=== PATIENT | female | born 1950 | race Caucasian/White ===

== ENCOUNTER 2017-03-25 20:01 | Emergency (ER) | payer MEDICARE, SELFPAY ==
[~2017-03-25] VITALS: Ht 167.6 cm; Wt 142.6 kg
[2017-03-25 20:10] VITALS: BP 146/87
== END 2017-03-25 20:51 | disposition home or self-care (01) ==
LOC: ED 20:45
DX: R13.13 Dysphagia, pharyngeal phase (principal); J31.2 Chronic pharyngitis; I10 Essential (primary) hypertension; E11.9 Type 2 diabetes mellitus without complications; E66.9 Obesity, unspecified
CPT/HCPCS: 99283

== ENCOUNTER 2018-03-22 09:47 | Inpatient (IN) | payer MEDICARE ==
[~2018-03-22] VITALS: Ht 167.6 cm; Wt 117.4 kg
[2018-03-22] VITALS (8 sets, daily range): BP systolic 114–195; BP diastolic 62–132
[2018-03-22] MEDS ORDERED: METOPROLOL TARTRATE 50 MG TABLET ONE (10:47)
[2018-03-22] MEDS ORDERED: METOPROLOL TARTRATE 50 MG TABLET PO ONE (11:00)
[2018-03-22 11:35] LABS: BASOPHILS # (AUTO) 0.05 x10^3/uL (0-0.1); BASOPHILS % (AUTO) 1 % (0-1); EOSINOPHILS % (AUTO) 3 % (1-7); LYMPHOCYTES # (AUTO) 1.04 x10^3/uL (1-3.4); LYMPHOCYTES % (AUTO) 17 % (22-44); MD NO; MEAN CORPUSCULAR HGB CONC 33.6 g/dL (32.4-35.8); MEAN CORPUSCULAR VOLUME 89.3 fL (80-100); MEAN PLATELET VOLUME 9.5 fL (7.4-10.4); MONOCYTES # (AUTO) 0.31 x10^3/uL (0.2-0.8); MONOCYTES % (AUTO) 5 % (2-9); NEUTROPHILS # (AUTO) 4.72 x10^3/uL (1.8-6.8); NEUTROPHILS % (AUTO) 75 % (42-75); PLATELET COUNT 188 x10^3/uL (130-400); RED BLOOD COUNT 5.04 x10^6/uL (3.82-5.3); RED CELL DISTRIBUTION WIDTH 14.1 % (9.6-15.2)
[2018-03-22 11:46] LABS: CHLORIDE 108 mmol/L (98-107)
[2018-03-22 11:47] LABS: ALBUMIN 3.7 g/dL (3.4-5.0); ANION GAP 8 mmol/L (5-15); CALCIUM 8.7 mg/dL (8.5-10.1)
[2018-03-22] MEDS ORDERED: LISINOPRIL 20 MG TABLET ONE (11:47)
[2018-03-22] MEDS ORDERED: NITROGLYCERIN OINT 2%, 1GM TP ONE ×2 (11:48→12:30)
[2018-03-22 11:50] LABS: TROPONIN I < 0.015 ng/mL (0.000-0.045)
[2018-03-22] MEDS ORDERED: METF500T17 PO (12:16)
[2018-03-22] MEDS ORDERED: LISI5TAB7 PO (12:16)
[2018-03-22] MEDS ORDERED: HYDROCHLOROTHIAZIDE (12:16)
[2018-03-22] MEDS ORDERED: LISINOPRIL 20 MG TABLET PO ONE (12:30)
[2018-03-22] MEDS ORDERED: BISACODYL 10 MG SUPP PR PRN (14:00)
[2018-03-22] MEDS ORDERED: DEXTROSE 50%, 50ML SYRINGE IVPush PRN (14:00)
[2018-03-22] MEDS ORDERED: DOCUSATE 100 MG CAPSULE PO PRN (14:00)
[2018-03-22] MEDS ORDERED: morphine SULFATE 10 MG/ML, 1ML IVPush PRN (14:00)
[2018-03-22] MEDS ORDERED: DILTIAZEM 5 MG/ML, 5ML IVPush ONE (14:00)
[2018-03-22] MEDS ORDERED: GLUCAGON 1 MG IM PRN (14:00)
[2018-03-22] MEDS ORDERED: DEXTROSE 4 GM TAB.CHEW PO PRN (14:00)
[2018-03-22] MEDS ORDERED: ASPIRIN 325 MG TABLET PO ONE (14:00)
[2018-03-22] MEDS ORDERED: POLYETHYLENE GLYCOL 17 GM PACKET PO PRN (14:00)
[2018-03-22] MEDS ORDERED: NITROGLYCERIN 0.4 MG BOTTLE (25 TABS) SL PRN (14:00)
[2018-03-22] MEDS ORDERED: SODIUM CHLORIDE FLUSH 10ML SYR IVF ONE (14:00)
[2018-03-22] MEDS ORDERED: ACETAMINOPHEN 325 MG TABLET PO PRN (14:00)
[2018-03-22] MEDS ORDERED: ONDANSETRON ODT 4 MG PO PRN (14:00)
[2018-03-22] MEDS ORDERED: ASPIRIN 325 MG TABLET ONE (14:34)
[2018-03-22] MEDS ORDERED: hydrALAzine 20 MG/ML, 1ML ONE (14:34)
[2018-03-22] MEDS: hydrALAzine 20 MG/ML, 1ML IVPush PRN ×2 (14:43→18:43)
[2018-03-22] MEDS ORDERED: ONDANSETRON 2MG/ML, 2ML ONE (14:45)
[2018-03-22] MEDS: ONDANSETRON 2MG/ML, 2ML IVPush PRN ×2 (14:50→18:43)
[2018-03-22] MEDS ORDERED: LOVA10TA PO (14:56)
[2018-03-22] MEDS ORDERED: AMLO2.5T3 PO (14:56)
[2018-03-22 15:15] LABS: TROPONIN I < 0.015 ng/mL (0.000-0.045)
[2018-03-22 15:23] LABS: HEMOGLOBIN A1C 5.8 % (4.2-6.3)
[2018-03-22 15:27] LABS: THYROID STIMULATING HORMONE 5.17 mIU/L (0.358-3.740)
[2018-03-22] MEDS: INSULIN LISPRO 100 UNITS/ML, PEN SQ-INSULIN SCH ×2 (15:43→19:45)
[2018-03-22] MEDS ORDERED: MAGNESIUM SULFATE PMX 2GM/50ML 50 ML IV SCH (17:30)
[2018-03-22] MEDS ORDERED: MAGNESIUM SULFATE PMX 4GM/100M 100 ML IVPB ONE (18:00)
[2018-03-22] MEDS: HEPARIN 5,000 UNITS/ML, 1ML SQ SCH (19:39)
[2018-03-22] MEDS: SODIUM CHLORIDE FLUSH 10ML SYR IVF SCH (19:40)
[2018-03-22 20:35] LABS: TROPONIN I < 0.015 ng/mL (0.000-0.045)
[2018-03-23] VITALS (9 sets, daily range): BP systolic 113–172; BP diastolic 67–87
[2018-03-23] MEDS: HEPARIN 5,000 UNITS/ML, 1ML SQ SCH ×3 (04:41→20:48)
[2018-03-23 05:11] LABS: BASOPHILS # (AUTO) 0.09 x10^3/uL (0-0.1); BASOPHILS % (AUTO) 1 % (0-1); EOSINOPHILS # (AUTO) 0.13 x10^3/uL (0-0.4); EOSINOPHILS % (AUTO) 2 % (1-7); LYMPHOCYTES # (AUTO) 1.02 x10^3/uL (1-3.4); LYMPHOCYTES % (AUTO) 15 % (22-44); MD NO; MEAN CORPUSCULAR HEMOGLOBIN 30.3 pg (27.0-34.8); MEAN CORPUSCULAR HGB CONC 33.8 g/dL (32.4-35.8); MEAN CORPUSCULAR VOLUME 89.7 fL (80-100); MEAN PLATELET VOLUME 9.6 fL (7.4-10.4); MONOCYTES # (AUTO) 0.39 x10^3/uL (0.2-0.8); MONOCYTES % (AUTO) 6 % (2-9); NEUTROPHILS # (AUTO) 5.39 x10^3/uL (1.8-6.8); NEUTROPHILS % (AUTO) 77 % (42-75); PLATELET COUNT 188 x10^3/uL (130-400); RED BLOOD COUNT 4.93 x10^6/uL (3.82-5.3); RED CELL DISTRIBUTION WIDTH 14.6 % (9.6-15.2)
[2018-03-23 05:22] LABS: ALANINE AMINOTRANSFERASE 32 U/L (12-78); ALBUMIN 3.1 g/dL (3.4-5.0); ANION GAP 7 mmol/L (5-15); CALCIUM 8.6 mg/dL (8.5-10.1); CHLORIDE 107 mmol/L (98-107)
[2018-03-23 05:25] LABS: ALKALINE PHOSPHATASE 56 U/L (45-117); BILIRUBIN,TOTAL 0.9 mg/dL (0.2-1.0); CREATININE 1.22 mg/dL (0.55-1.02); TOTAL PROTEIN 6.3 g/dL (6.4-8.2)
[2018-03-23] MEDS: INSULIN LISPRO 100 UNITS/ML, PEN SQ-INSULIN SCH ×4 (07:00→20:49)
[2018-03-23] MEDS: ONDANSETRON 2MG/ML, 2ML IVPush PRN (08:29)
[2018-03-23] MEDS: SODIUM CHLORIDE FLUSH 10ML SYR IVF SCH ×2 (08:29→20:48)
[2018-03-23] MEDS ORDERED: REGADENOSON 0.4 MG/5 ML SYRINGE ONE (08:54)
[2018-03-23] MEDS: FUROSEMIDE 20 MG TABLET PO SCH (11:43)
[2018-03-23] MEDS: AMLODIPINE 2.5 MG TABLET PO SCH (12:44)
[2018-03-23] MEDS: LISINOPRIL 10 MG TABLET PO SCH (12:44)
[2018-03-23 14:38] LABS: MICROSCOPIC INDICATED
[2018-03-23 14:49] LABS: CULTURE INDICATED? YES
[2018-03-23] MEDS: CEFTRIAXONE PMX 1GM/50ML 50 ML IV SCH (17:00)
[2018-03-23] MEDS: LOVASTATIN 10 MG TABLET PO SCH (20:48)
[2018-03-24 00:35] VITALS: BP 150/88
[2018-03-24] MEDS: HEPARIN 5,000 UNITS/ML, 1ML SQ SCH ×3 (05:04→21:33)
[2018-03-24] MEDS: INSULIN LISPRO 100 UNITS/ML, PEN SQ-INSULIN SCH ×4 (07:00→21:00)
[2018-03-24 08:06] VITALS: BP 153/89
[2018-03-24] MEDS: LISINOPRIL 10 MG TABLET PO SCH (08:33)
[2018-03-24] MEDS: POTASSIUM CHLORIDE 10 MEQ TABLET.ER PO SCH (08:33)
[2018-03-24] MEDS: FUROSEMIDE 20 MG TABLET PO SCH (08:33)
[2018-03-24] MEDS: AMLODIPINE 2.5 MG TABLET PO SCH (08:33)
[2018-03-24] MEDS: SODIUM CHLORIDE FLUSH 10ML SYR IVF SCH ×2 (08:34→21:32)
[2018-03-24] MEDS: metFORMIN XR 500 MG TAB.ER.24H PO SCH (08:34)
[2018-03-24 11:22] LABS: CHLORIDE 104 mmol/L (98-107)
[2018-03-24 11:29] LABS: ANION GAP 8 mmol/L (5-15); CALCIUM 8.7 mg/dL (8.5-10.1); CREATININE 1.42 mg/dL (0.55-1.02)
[2018-03-24 13:15] VITALS: BP 150/88
[2018-03-24] MEDS ORDERED: NS + 20MEQ KCL 1,000 ML IV SCH (16:00)
[2018-03-24] MEDS: CEFTRIAXONE PMX 1GM/50ML 50 ML IV SCH (16:35)
[2018-03-24] MEDS: LOVASTATIN 10 MG TABLET PO SCH (21:32)
[2018-03-24] MEDS: OXYBUTYNIN CHLORIDE 5 MG TABLET PO SCH (21:32)
[2018-03-24 21:54] VITALS: BP 157/80
[2018-03-25] VITALS (8 sets, daily range): BP systolic 148–187; BP diastolic 82–119
[2018-03-25 05:10] LABS: ANION GAP 6 mmol/L (5-15); CALCIUM 8.5 mg/dL (8.5-10.1); CHLORIDE 108 mmol/L (98-107); CREATININE 1.32 mg/dL (0.55-1.02)
[2018-03-25] MEDS: HEPARIN 5,000 UNITS/ML, 1ML SQ SCH ×3 (05:20→20:27)
[2018-03-25] MEDS: INSULIN LISPRO 100 UNITS/ML, PEN SQ-INSULIN SCH ×4 (07:00→20:27)
[2018-03-25] MEDS: SODIUM CHLORIDE FLUSH 10ML SYR IVF SCH ×2 (08:22→20:14)
[2018-03-25] MEDS: POTASSIUM CHLORIDE 10 MEQ TABLET.ER PO SCH (08:28)
[2018-03-25] MEDS: metFORMIN XR 500 MG TAB.ER.24H PO SCH (08:28)
[2018-03-25] MEDS: AMLODIPINE 2.5 MG TABLET PO SCH (08:28)
[2018-03-25] MEDS: OXYBUTYNIN CHLORIDE 5 MG TABLET PO SCH ×2 (08:29→20:15)
[2018-03-25] MEDS: hydrALAzine 20 MG/ML, 1ML IVPush PRN (08:47)
[2018-03-25] MEDS ORDERED: MAGNESIUM SULFATE 4 GM in SODIUM CHLORIDE 0.9% 100 ML IV ONE (11:00)
[2018-03-25] MEDS: DILTIAZEM 30 MG TABLET PO SCH ×3 (11:00→20:15)
[2018-03-25] MEDS: HYDROCHLOROTHIAZIDE 12.5 MG CAPSULE PO SCH ×2 (12:23→20:26)
[2018-03-25] MEDS: AMLODIPINE 5 MG TABLET PO SCH ×2 (12:23→20:16)
[2018-03-25] MEDS: POTASSIUM CHLORIDE 20 MEQ PACKET PO SCH (12:28)
[2018-03-25] MEDS ORDERED: CEFTRIAXONE PMX 1GM/50ML 50 ML IV SCH (16:30)
[2018-03-25] MEDS: LOVASTATIN 10 MG TABLET PO SCH (20:16)
[2018-03-26 01:28] VITALS: BP 157/85
[2018-03-26] MEDS: HEPARIN 5,000 UNITS/ML, 1ML SQ SCH ×3 (05:01→20:09)
[2018-03-26 05:35] LABS: ANION GAP 7 mmol/L (5-15); CALCIUM 9.3 mg/dL (8.5-10.1); CHLORIDE 103 mmol/L (98-107); CREATININE 1.25 mg/dL (0.55-1.02)
[2018-03-26] MEDS: INSULIN LISPRO 100 UNITS/ML, PEN SQ-INSULIN SCH ×4 (07:00→20:10)
[2018-03-26] MEDS: SODIUM CHLORIDE FLUSH 10ML SYR IVF SCH ×2 (07:05→20:06)
[2018-03-26 07:25] VITALS: BP 179/101
[2018-03-26] MEDS: POTASSIUM CHLORIDE 10 MEQ TABLET.ER PO SCH (07:36)
[2018-03-26] MEDS: POTASSIUM CHLORIDE 20 MEQ PACKET PO SCH (07:36)
[2018-03-26] MEDS: HYDROCHLOROTHIAZIDE 12.5 MG CAPSULE PO SCH ×2 (07:52→20:07)
[2018-03-26] MEDS: AMLODIPINE 5 MG TABLET PO SCH ×2 (07:52→20:06)
[2018-03-26] MEDS: DILTIAZEM 30 MG TABLET PO SCH ×3 (07:53→22:10)
[2018-03-26] MEDS: metFORMIN XR 500 MG TAB.ER.24H PO SCH (08:32)
[2018-03-26] MEDS: MAGNESIUM OXIDE 400 MG TABLET PO SCH ×2 (08:32→20:08)
[2018-03-26] MEDS: OXYBUTYNIN CHLORIDE 5 MG TABLET PO SCH ×2 (08:32→20:13)
[2018-03-26 11:09] VITALS: BP 147/81
[2018-03-26 13:21] VITALS: BP 169/99
[2018-03-26 19:47] VITALS: BP 150/79
[2018-03-26] MEDS: LOVASTATIN 10 MG TABLET PO SCH (20:13)
[2018-03-26 22:10] VITALS: BP 169/72
[2018-03-27 01:41] VITALS: BP 170/90
[2018-03-27 01:56] VITALS: BP 157/77
[2018-03-27] MEDS: HEPARIN 5,000 UNITS/ML, 1ML SQ SCH (05:09)
[2018-03-27 05:15] VITALS: BP 149/78
[2018-03-27 05:33] LABS: ANION GAP 9 mmol/L (5-15); CALCIUM 9.6 mg/dL (8.5-10.1); CHLORIDE 102 mmol/L (98-107)
[2018-03-27 05:34] LABS: CREATININE 1.29 mg/dL (0.55-1.02)
[2018-03-27] MEDS: INSULIN LISPRO 100 UNITS/ML, PEN SQ-INSULIN SCH ×2 (06:45→11:00)
[2018-03-27 07:38] VITALS: BP 141/82
[2018-03-27] MEDS: MAGNESIUM OXIDE 400 MG TABLET PO SCH (08:31)
[2018-03-27] MEDS: AMLODIPINE 5 MG TABLET PO SCH (08:31)
[2018-03-27] MEDS: metFORMIN XR 500 MG TAB.ER.24H PO SCH (08:31)
[2018-03-27] MEDS: DILTIAZEM 30 MG TABLET PO SCH (08:31)
[2018-03-27] MEDS: HYDROCHLOROTHIAZIDE 12.5 MG CAPSULE PO SCH (08:31)
[2018-03-27] MEDS: SODIUM CHLORIDE FLUSH 10ML SYR IVF SCH (08:31)
[2018-03-27] MEDS: OXYBUTYNIN CHLORIDE 5 MG TABLET PO SCH (08:31)
[2018-03-27] MEDS: POTASSIUM CHLORIDE 20 MEQ PACKET PO SCH (08:31)
[2018-03-27] MEDS ORDERED: POTA20PA25 PO (10:30)
[2018-03-27] MEDS ORDERED: OXYB5TAB7 PO (10:30)
[2018-03-27] MEDS ORDERED: AMLO-150 PO (10:30)
[2018-03-27] MEDS ORDERED: HYDR12.517 PO (10:30)
[2018-03-27] MEDS ORDERED: HYDR-3343 PO (10:30)
[2018-03-27] MEDS ORDERED: DILT120C2 PO (10:30)
[2018-03-27] MEDS ORDERED: POLY17PO5 PO (10:30)
[2018-03-27] MEDS ORDERED: MAGN400T50 PO (10:30)
== END 2018-03-27 12:15 | disposition home health service (06) | DRG 305 ==
LOC: ED 13:02 → EDIP 13:03 → ED 13:15 → 5SO 15:32 → DCLOUNGE 03-27 11:49
PROVIDERS: ADMIT Internal Medicine; ATTEND Family Medicine
DX: I16.0 Hypertensive urgency (principal); Z68.41 Body mass index [BMI] 40.0-44.9, adult; N39.0 Urinary tract infection, site not specified; I27.20 Pulmonary hypertension, unspecified; E66.01 Morbid (severe) obesity due to excess calories; E11.22 Type 2 diabetes mellitus with diabetic chronic kidney disease; E78.5 Hyperlipidemia, unspecified; H40.9 Unspecified glaucoma; I07.1 Rheumatic tricuspid insufficiency; I12.9 Hypertensive chronic kidney disease with stage 1 through stage 4 chronic kidney disease, or unspecified chronic kidney disease; R11.2 Nausea with vomiting, unspecified; E83.42 Hypomagnesemia; I27.21 Secondary pulmonary arterial hypertension; M10.9 Gout, unspecified; N18.3 Chronic kidney disease, stage 3 (moderate); Z90.710 Acquired absence of both cervix and uterus; Z90.49 Acquired absence of other specified parts of digestive tract
CPT/HCPCS: 36415; 71045; 78452; 80048; 80053; 81001; 82040; 82962; 83036; 83735; 83880; 84100; 84436; 84443; 84484; 85025; 87086; 93005; 93017; 93306; 99285; G0378; J0696; J1644; J2405; J2785; J3475; J3480; A9502; C9898; J0360